=== PATIENT | female | born 1955 | race Caucasian/White ===

== ENCOUNTER 2019-12-20 14:33 | Outpatient (REF) | payer MEDICARE, SELFPAY | END 2019-12-20 14:34 | disposition home or self-care (01) | LOC: HO.SH 14:33 | PROVIDERS: PCP Family Medicine; Visit Provider Family Medicine | DX: H90.3 Sensorineural hearing loss, bilateral (principal) | CPT/HCPCS: 92557; 92567 ==

== ENCOUNTER 2020-08-27 10:36 | Outpatient (REF) | payer SELFPAY | END 2020-08-27 10:37 | disposition home or self-care (01) | LOC: HO.HAP 10:36 | PROVIDERS: Visit Provider Family Medicine | DX: Z13.89 Encounter for screening for other disorder (principal) ==

== ENCOUNTER 2021-01-09 10:33 | Outpatient (REF) | payer MEDICARE, SELFPAY ==
--- NOTE | 2021-01-09 13:17 | MHC.AU.AHA ---
Adult Audiological Evaluation Date of Visit: 01/09/21 Reason for Appointment: Audiological evaluation to monitor the status of Ms. Cruz's hearing loss. She has a known bilateral, sensorineural hearing loss and uses hearing aids binaurally. She notes some difficulties with clarity and hearing people when they are not facing her. She is interested in pursuing new hearing aids. She denies any significant changes to her hearing or medical history since her last visit. Previous Hearing Test Results: [facility] [place] - 12/20/2019 - Mild to moderate sensorineural hearing loss bilaterally. Ear History: Family History of Hearing Loss?: Yes: Mother and father Medical History: Medical History: Heart Problems Hearing Instrument History- Right Ear: Hide Splitter: OtApexigen Model: [place] 2 Pro RITE Serial Number: [id number] Battery Size: 312 Repair Warranty: in 2018 Loss and Damage Warranty: in 2017 Dispensed By: [facility] Date of Fittin11/01/15 Hearing Instrument History- Left Ear: Hide Splitter: OtApexigen Model: [place] 2 Pro RITE Serial Number: [id number] Battery Size: 312 Warranty: in 2018 Loss and Damage Warranty: in 2017 Dispensed By: [facility] Date of Fittin11/01/15 Otoscopy: Right Ear: Cerumen in canal, attempted removal but patient discontinued procedure Left Ear: Unremarkable Hearing Evaluation: Transducer(s) Used: Insert Earphones, Bone Conduction Method: Conventional Audiometry Stimuli Used: Pure Tones Right Ear: Description of Hearing: Mild sensorineural hearing loss from 250-2000 Hz, sloping to a moderate sensorineural hearing from 9206-1887 Hz. Left Ear: Description of Hearing: Mild sensorineural hearing loss from 250-2000 Hz, sloping to a moderate sensorineural hearing from 3274-3511 Hz. Speech Recognition Threshold (SRT): Method Used: Monitored Live Voice Stimuli Used: Spondee Words Right Ear: 15 dBHL Left Ear: 20 dBHL Word Discrimination: Method: Recorded Lists Word Lists Used: NU-6 Right Ear: 96% at 70 dBHL Left Ear: 96% at 70 dBHL Comparison: Compared to the most recent evaluation: Hearing is stable. Recommendations: Audiological re-evaluation in one year. Medical clearance from a physician is required before fitting. Hearing Aid Fitting will be scheduled when all materials arrive. Ms. Cruz is interested in purchasing new hearing aids. Discussed hearing aid options, styles, and technologies. Would like to proceed with a pair of Oticon More 2 miniRITE-T hearing aids. Diagnosis: Primary Diagnosis: H90.3 Bilateral Sensorineural Hearing Loss Services Performed: Comprehensive Audiological Evaluation (CPT 89267) Signature: Provider: Emily Arreaga, CCC-A
--- NOTE | 2021-01-10 09:19 | MHC.AU.MED ---
Medical Clearance for Hearing Instrumentation Date: 01/10/21 Patient Name: Janey Cruz Date of : 1955 Referring Provider: Andres Bailey MD We have seen your patient on 01/09/21 and have determined that they are a candidate for amplification (See accompanying report). Specifically, they would benefit from: Hearing aid use in both ears There is a statute that addresses Medical Evaluation Requirements prior to fitting a patient with a hearing aid. According to [place] statute [facility] CMR:6.03(1), (a) General. Except as provided in 265 CMR 6.03(1)(b), a solicitor patent shall not sell a hearing aid unless the prospective user has presented to the solicitor patent a written statement signed by a licensed physician that states that the patient's hearing loss has been medically evaluated and the patient may be considered a candidate for a hearing aid. The medical evaluation must have taken place within the preceding six months. Please note: Due to the [place] Statute referenced above, we cannot accept a signature other than that of a licensed physician. DREDGE [employer] and PA signatures cannot be accepted. I am in agreement with the above recommendation. There is no medical contraindication for hearing instrumentation. Physician Signature Date Physician Name (Printed)
== END 2021-01-09 10:34 | disposition home or self-care (01) ==
LOC: HO.SH 10:33
PROVIDERS: Visit Provider Family Medicine
DX: H90.3 Sensorineural hearing loss, bilateral (principal)
CPT/HCPCS: 92557

== ENCOUNTER 2021-01-09 11:55 | Outpatient (REF) | payer SELFPAY ==
--- NOTE | 2021-01-09 14:26 | MHC.AU.HAS ---
Hearing Aid Evaluation Date of Visit: 01/09/21 Historical Information: Description of Hearing: Mild to moderate sensorineural hearing loss from 250-8000 Hz bilaterally. Current personal amplification information, if applicable: 2015 Oticon [place] 2 Pro RITE Summary: Ms. Cruz is interested in purchasing new hearing aids. Recommend she stay with Oticon hearing aids. She would like to stay with a mid-range technology. Hearing Aid Prescription: Based on the individual?s shared listening needs, communication environments, dexterity, desire for connectivity, and personal preferences, the following prescription for amplification has been made: Right ear: Contract Accountant: Oticon Model: More 2 miniRITE-T Battery Size: 312 Color: 94 Drill Foreman: Size 1 85 gain Type of Dome: 8mm closed Left ear: Left ear prescription to be same as Right Hearing Aid above: Contract Accountant: O[employer]on Model: More 2 miniRITE-T Battery Size: 312 Color: 94 Drill Foreman: Size 1 85 gain Type of Dome: 8mm closed Plan of Care: Patient wishes to purchase hearing aids as prescribed. Medical Clearance to be requested from PCP/ENT. Hearing Instrument Fitting to be scheduled when materials arrive Primary Diagnosis: H90.3 Bilateral Sensorineural Hearing Loss Signature: Provider: Melany Hansen, Emily, CCC-A
== END 2021-01-09 11:56 | disposition home or self-care (01) ==
LOC: HO.HAP 11:55
PROVIDERS: Visit Provider Family Medicine
DX: Z46.1 Encounter for fitting and adjustment of hearing aid (principal); H90.3 Sensorineural hearing loss, bilateral
CPT/HCPCS: 92591

== ENCOUNTER 2021-01-31 13:54 | Outpatient (REF) | payer SELFPAY | END 2021-01-31 13:55 | disposition home or self-care (01) | LOC: HO.HAP 13:54 | PROVIDERS: Visit Provider Family Medicine | DX: Z46.1 Encounter for fitting and adjustment of hearing aid (principal); H90.3 Sensorineural hearing loss, bilateral | CPT/HCPCS: V5261 ==

== ENCOUNTER 2021-02-21 09:32 | Outpatient (REF) | payer SELFPAY | END 2021-02-21 09:33 | disposition home or self-care (01) | LOC: HO.HAP 09:32 | PROVIDERS: Visit Provider Family Medicine | DX: Z13.89 Encounter for screening for other disorder (principal) ==

== ENCOUNTER 2021-03-21 11:36 | Outpatient (REF) | payer SELFPAY | END 2021-03-21 11:37 | disposition home or self-care (01) | LOC: HO.HAP 11:36 | PROVIDERS: Visit Provider Family Medicine | DX: Z13.89 Encounter for screening for other disorder (principal) ==

== ENCOUNTER 2021-04-01 11:08 | Outpatient (REF) | payer SELFPAY ==
--- NOTE | 2021-04-01 15:20 | MHC.AU.HFU ---
Hearing Instrument Follow-Up- Binaural Date of Visit: 04/01/21 Right Ear: Licensed Professional Counselor: Oticon Model: More 2 miniRITE-T Serial Number: [id number] Repair Warranty: 02/10/2024 Loss and Damage Warranty: 02/10/2024 Battery Size: 312 Color: 94 Academic Affairs Manager: Size 2 85 gain Type of Dome: 8mm closed Type of Wax Guard: Prowax minifit Dispensed By: [facility] Date of Fittin01/31/2021 Left Ear: Licensed Professional Counselor: O[employer]on Model: More 2 miniRITE-T Serial Number: [id number] Repair Warranty: 02/10/2024 Loss and Damage Warranty: 02/10/2024 Battery Size: 312 Color: 94 Academic Affairs Manager: Size 2 85 gain Type of Dome: 8mm closed Type of Wax Guard: Prowax minifit Dispensed By: [facility] Date of Fittin01/31/2021 Follow-Up Summary: Patient states that she hasn't been happy with the aids and they keep falling out. She notes that when she wears her headphones over the hearing aids it hurts a lot, but doesn;t with her previous aids. Compared to her previous aids, and she was previously using size 2 85 gain, and her new ones had size 1 85 gain. Used a left size 1 85 gain from stock, but didn't have any for the right side in stock. Changed to 8mm closed domes as well. Ordered a new right tai chi instructor under warranty. Patient requested we mail it too her as she doesn't want to come back in again if not necessary. Showed her how to changed the tai chi instructor on her own and gave her a pin tool. [employer] states that they cannot send directly to patient, so will mail it to her when it come in. Also extended her trial period to 05/13/2021. Signature: Provider: Emily Arreaga, CCC-A
== END 2021-04-01 11:09 | disposition home or self-care (01) ==
LOC: HO.HAP 11:08
PROVIDERS: Visit Provider Family Medicine
DX: Z13.89 Encounter for screening for other disorder (principal)

== ENCOUNTER 2021-04-05 10:40 | Outpatient (REF) | payer SELFPAY ==
--- NOTE | 2021-04-05 11:08 | MHC.AU.HFU ---
Hearing Instrument Follow-Up- Binaural Date of Visit: 04/05/21 Right Ear: Rn Employee Health: O[employer]on Model: More 2 miniRITE-T Serial Number: [id number] Repair Warranty: 02/10/2024 Loss and Damage Warranty: 02/10/2024 Battery Size: 312 Color: 94 Diesel Retrofit Designer: Size 2 85 gain Type of Dome: 8mm closed Type of Wax Guard: Prowax minifit Dispensed By: [facility] Date of Fittin01/31/2021 Left Ear: Rn Employee Health: O[employer]on Model: More 2 miniRITE-T Serial Number: [id number] Repair Warranty: 02/10/2024 Loss and Damage Warranty: 02/10/2024 Battery Size: 312 Color: 94 Diesel Retrofit Designer: Size 2 85 gain Type of Dome: 8mm closed Type of Wax Guard: Prowax minifit Dispensed By: [facility] Date of Fittin01/31/2021 Follow-Up Summary: Patient decided she would like to return the hearing aids for credit. She dropped them off today. [facility] Billing department will be notified of the need to reimburse the $3850.00. Recommendations: Recommendations: Please contact our clinic with any questions or concerns. Diagnosis Code(s): Primary Diagnosis: H90.3 Bilateral Sensorineural Hearing Loss Signature: Provider: Emily Arreaga, [facility]
== END 2021-04-05 10:41 | disposition home or self-care (01) ==
LOC: HO.HAP 10:40
PROVIDERS: Visit Provider Family Medicine
DX: Z13.89 Encounter for screening for other disorder (principal)